=== PATIENT | male | born 1980 | race Two or more races ===

== ENCOUNTER 2024-09-23 17:04 | Emergency (ER) | payer OTHER ==
[~2024-09-23] VITALS: Ht 185.4 cm; Wt 93.0 kg
[2024-09-23] MEDS ORDERED: IBUPROFEN 600 MG TABLET ONE (18:07)
[2024-09-23] MEDS: IBUPROFEN 600 MG TABLET PO ONE (18:11)
[2024-09-23] MEDS ORDERED: KETOROLAC TROMETHAMINE 15 MG/ML VIAL ONE (19:29)
[2024-09-23] MEDS: KETOROLAC TROMETHAMINE 15 MG/ML VIAL IM ONE (19:32)
[2024-09-23 19:34] VITALS: BP 130/90; TEMP 98.5; O2SAT 99
== END 2024-09-23 19:37 | disposition left against medical advice (07) ==
LOC: ER 17:26
DX: S09.90XA Unspecified injury of head, initial encounter (principal); S16.1XXA Strain of muscle, fascia and tendon at neck level, initial encounter; M54.50 Low back pain, unspecified; V43.52XA Car driver injured in collision with other type car in traffic accident, initial encounter; Y93.89 Activity, other specified; Y92.488 Other paved roadways as the place of occurrence of the external cause; Y99.8 Other external cause status
CPT/HCPCS: 99285; 72125; 96372; 72110; 70450; J1885